=== PATIENT | male | born 1960 | race Two or more races ===

== ENCOUNTER 2019-04-11 12:25 | Emergency (ER) | payer OTHER ==
[~2019-04-11] VITALS: Ht 172.7 cm; Wt 90.3 kg
--- NOTE | 2019-04-11 12:35 | NUR ---
[id number], GLF +ETOH, + DEFORMITY ON RT WRIST, -KO, PATIENT A/OX4, SCREAMING, BREATHING EVEN AND UNLABORED, NO SOB NOTED, IV LINE ESTABLISHED. ATTACHED ON THE MONITOR.
[2019-04-11] MEDS ORDERED: HYDROMORPHONE 1 MG/1 ML DISP.SYRIN ONE (12:38)
[2019-04-11] MEDS ORDERED: ONDANSETRON HCL/PF 4 MG/2 ML VIAL ONE (12:38)
[2019-04-11] MEDS ORDERED: KETOROLAC TROMETHAMINE INJ 30 MG/ML VIAL ONE (12:38)
--- NOTE | 2019-04-11 12:40 | NUR ---
SEEN BY ALEX MEADE
[2019-04-11] MEDS ORDERED: PROPOFOL 0 ML IV ONE (12:48)
[2019-04-11] MEDS ORDERED: ETOMIDATE 2 MG/ML VIAL ONE (12:59)
[2019-04-11] MEDS ORDERED: KETOROLAC TROMETHAMINE INJ 30 MG/ML VIAL IV ONE (13:00)
[2019-04-11] MEDS ORDERED: ONDANSETRON HCL/PF 4 MG/2 ML VIAL IV ONE (13:00)
[2019-04-11] MEDS ORDERED: HYDROMORPHONE 1 MG/1 ML DISP.SYRIN IV ONE (13:00)
--- NOTE | 2019-04-11 13:29 | NUR ---
RIGHT WRIST REDUCTION WITH CONSCIOUS SEDATION COMPLETED BY [employer]. PATIENT'S VITALS STABLE.
--- NOTE | 2019-04-11 14:30 | NUR ---
PATIENT A/OX4, BREATHING EVEN AND UNLABORED, NO SOB NOTED, ABLE TO AMBULATE WITH STEADY GAIT. RIGHT ARM SPLINT DRY AND INTACT, WITH RIGHT SHOULDER SLING. PATIENT'S IV REMOVED. RX PROVIDED AND EXPLAINED. DISCHARGED TO HOME IN STABLE CONDITION, PROVIDED A TAP CARD. PATIENT VERBALIZED DISCHARGE INSTRUCTION. CD IMAGE PROVIDED.
[2019-04-11 14:32] VITALS: BP 139/99
[2019-04-11] MEDS ORDERED: ETOMIDATE 2 MG/ML VIAL IV ONE (16:00)
== END 2019-04-11 14:32 | disposition home or self-care (01) ==
LOC: ER 12:28
DX: S52.591A Other fractures of lower end of right radius, initial encounter for closed fracture (principal); F10.10 Alcohol abuse, uncomplicated; Z60.2 Problems related to living alone; Y90.9 Presence of alcohol in blood, level not specified; W18.39XA Other fall on same level, initial encounter; Y93.89 Activity, other specified; Y92.89 Other specified places as the place of occurrence of the external cause; Y99.8 Other external cause status
CPT/HCPCS: 25605; 73100; 73110; 96374; 96375; 99285; J1170; J1885; J2405; J3490; J7030; G0500; J2704